=== PATIENT | female | born 2000 | race Caucasian/White ===

== ENCOUNTER 2023-02-19 20:50 | Emergency (ER) | payer MEDICARE, MEDICAID ==
[2023-02-19] MEDS ORDERED: Ciprofloxacin 0.3% Ophth Soln 5 ML Bottle EYEBOTH SCH (21:30)
== END 2023-02-19 21:23 | disposition home or self-care (01) ==
LOC: KA.ED 20:50
DX: H10.33 Unspecified acute conjunctivitis, bilateral (principal); B96.89 Other specified bacterial agents as the cause of diseases classified elsewhere
CPT/HCPCS: 99282; A9270; 99283